=== PATIENT | female | born 1995 | race Caucasian/White ===

== ENCOUNTER 2017-12-04 08:22 | Observation (INO) | payer BC, OTHER ==
--- NOTE | 2017-12-01 12:46 | PDGENHP ---
History and Physical History and Physical: Assessment and Plan: 1. Pelvic pain in magdiel Lindquist has a complicated history and complicated treatment options given the side effects of migraine headaches and severe depression with certain hormones. We reviewed all conservative and surgical options. She has given this a great deal consideration. She has no plans for children in the future. At the end of our discussion she is interested in surgical exploration again which will involve excision of any endometriosis found. Additionally because she has central pelvic cramping pain which appears to be arising from her uterus, she is requesting hysterectomy. This also would allow her to control her symptoms without needing hormones which causes systemic side effects. If she decides not to undergo a hysterectomy I would recommend replacing her Mirena IUD while under anesthesia. 2. Endometriosis of pelvic peritoneum 3. Dysmenorrhea Subjective: Patient ID: Ameena Serrano is a 22 y.o. female who presents to [facility] for pelvic pain. LESLIE Lindquist is a 22-year-old 0 woman with a history of endometriosis. I performed robotic excision of endometriosis in 2012. Afterwards she was on Depo -Provera and later switched to a Mirena IUD. The Mirena could not seem to control her symptoms well for about 2 years. She then developed some monthly cyclic pain lasting about 1 week. She saw her regular technical project manager in [place] who then tried various control pills. One caused severe depression almost immediately. She is currently on a 20 mcg pill with drospirenone. This has controlled her cyclic symptoms fairly well but she continues to have bilateral pelvic cramping pain. She also was noticed to have an ovarian cyst in 2015 as well as May 2017. The pain radiates around to her low back. She does not have it daily but has most days. It typically will last 30-60 minutes at a time but sometimes longer. Her current control pill does cause migraine headaches. No current dyspareunia or dyschezia. Still has her Mirena IUD in place but has no bleeding. She is extremely tired of this pain as it greatly interferes with the quality of her life. PastMedicalHistory Past Medical History: Diagnosis Date Anemia Endometriosis Mental disorder Generalized Anxiety Disorder PastSurgicalHistory Past Surgical History: Procedure Laterality Date ear pressure equalization tube insertion Bilateral PELVIC LAPAROSCOPY 2012 UPPER GASTROINTESTINAL ENDOSCOPY WISDOM TOOTH EXTRACTION 2015 CURRENT MEDICATIONS: Current Outpatient Prescriptions Medication Sig drospirenone-eth estradiol (MAIKOL, 28,) 3-0.02 mg per tablet Take 1 tablet by mouth daily. gabapentin (NEURONTIN) 100 mg capsule Take 100 mg by mouth 2 times daily. levonorgestrel (MIRENA) 20 mcg/24 hr (5 years) IUD 52 mg by Intrauterine route continuous device. No current facility-administered medications for this visit. ALLERGIES: Vicodin [hydrocodone-acetaminophen] I have reviewed, verified and agree with the past medical, surgical, , family, social and ROS history as documented by the RN today. Objective: Vital Signs: Visit Vitals BP 112/68 Pulse 86 Temp 37.2 C (99 F) (Temporal Artery) Resp 16 Ht 1.88 m (6' 2") Wt 75.2 kg (165 lb 12.8 oz) SpO2 99% BMI 21.29 kg/m Physical Exam Gen: This is an alert, well developed woman in no distress. Neuro: She moves all extremities. Psych: She is appropriate, oriented, with normal affect. Neck: No thyroid enlargement, adenopathy, or tenderness. Lungs: Clear to ascultation, no wheezes or rales. Heart: Regular rate and rhythm without obvious murmurs. Abdomen: Soft, non-tender, without guarding, rebound, or masses. Extremities: No edema or cyanosis. Pelvic: Normal external genitalia. Non-gaping introitus, vagina without discharge, adequately estrogenized, no significant prolapse. Cervix without lesions or discharge. Uterus normal sized, mobile, non-tender. Adnexa non- tender without enlargement. The uterus is tender. Compressing the uterus re- creates her cramping type pain which radiates to her low back. Additionally she has discomfort along the uterosacral ligaments and posterior cul-de-sac. DATA: I have reviewed the pertinent medical records. TIME/COMMUNICATION: I personally spent a total of 60 minutes. Of that 50 minutes was counseling/ coordination of patient's care. See my note above for details. Jordan Sneed MD Board Certified Female Pelvic Medicine and Reconstructive Surgery Director of Minimally Invasive Gynecologic Surgery, [facility] Surgeon in Minimally Invasive Gynecologic Surgery [facility] Surgeon in Robotic Surgery
[2017-12-04] MEDS ORDERED: ceFAZolin 2 GM/SWFI 2 GM/20 ML SYR IVP ONE (08:31)
[2017-12-04] MEDS ORDERED: GABAPENTIN 300 MG CAP PO ONE (08:31)
[2017-12-04] MEDS ORDERED: ACETAMINOPHEN 500 MG TAB PO ONE (08:31)
[2017-12-04] MEDS ORDERED: PHENAZOPYRIDINE HCL 200 MG TAB PO ONE (08:31)
[2017-12-04] MEDS ORDERED: LR 1,000 ML IV ONE (08:32)
[2017-12-04] MEDS ORDERED: LIDOCAINE 1% 2 ML INJ ID PRN (08:32)
--- NOTE | 2017-12-04 09:14 | PDHPUP ---
History & Physical Update H&P update statement: This history and physical update is based on an assessment of the patient which was completed after admission or registration (within 24 hours), but prior to the surgery/procedure. H&P update: H&P reviewed & patient examined, no change in patient's condition since H&P completed
--- NOTE | 2017-12-04 09:36 | PDANEPAE ---
ANE Past Medical History - Cardiovascular History Hx Hypertension: No Hx Arrhythmias: No Hx Chest Pain: No Hx Coronary Artery / Peripheral Vascular Disease: No Hx CHF / Valvular Disease: No Hx Palpitations: No - Pulmonary History Hx COPD: No Hx Asthma/Reactive Airway Disease: No Hx Recent Upper Respiratory Infection: No Hx Oxygen in Use at Home: No Hx Sleep Apnea: No Sleep Apnea Screening Result - Last Documented: Negative - Neurologic History Hx Cerebrovascular Accident: No Hx Seizures: No Hx Dementia: No - Endocrine History Hx Diabetes: No Hypothyroid: No Hyperthyroid: No Obesity: no - Renal History Hx Renal Disorders: No - Liver History Hx Hepatic Disorders: No - Neurological & Psychiatric Hx Hx Neurological and Psychiatric Disorders: No - Cancer History Hx Cancer: No - Congenital Disorder History Hx Congenital Disorders: No - GI History Hx Gastrointestinal Disorders: Yes Gastrointestinal History Comment: SENSITIVE STOMACH - Other Health History Other Health History: NEG - Chronic Pain History Chronic Pain: Yes (ABD PAIN ENDOMETRIOSIS) - Surgical History Prior Surgeries: WISDOM TEETH 2016. LAPAROSCOPY 2012. EGD 2010 ANE Review of Systems Review of Systems: - Exercise capacity METS (RN): 5 METS ANE Patient History - Allergies Allergies/Adverse Reactions: No Known Allergies Allergy (Unverified 10/24/17 11:44) - Home Medications Home Medications: Ethinyl Estradiol/Drospirenone [Harika 3 mg-0.02 mg Tablet] 1 each PO DAILY 10/24 [Last Taken Unknown] Gabapentin [Neurontin 100 MG (*)] 100 mg PO BID 10/24/17 [Last Taken Unknown] Herbals/Supplements -Info Only 1 ea PO DAILY 10/24/17 [Last Taken Unknown] Ibuprofen [Motrin (*)] 200 mg PO DAILY PRN 10/24/17 [Last Taken Unknown] Levonorgestrel [Mirena] 1 each [id number] 10/24/17 [Last Taken Unknown] Multivitamins [Multivitamin (*)] 1 each PO DAILY 10/24/17 [Last Taken Unknown] - NPO status NPO Since - Liquids (Date): 12/04/17 NPO Since - Liquids (Time): 06:00 NPO Since - Solids (Date): 12/03/17 NPO Since - Solids (Time): 20:45 - Smoking Hx Smoking Status: Never smoked - Family Anes Hx Family Hx Anesthesia Complications: NEG ANE Labs/Vital Signs - Vital Signs Blood Pressure: 132/83 Heart Rate: 73 Respiratory Rate: 16 O2 Sat (%): 99 Height: 187.96 cm Weight: 77.111 kg ANE Physical Exam - Airway Neck exam: FROM Mallampati Score: Class 1 Mouth exam: normal dental/mouth exam - Pulmonary Pulmonary: no respiratory distress - Cardiovascular Cardiovascular: regular rate and rhythym - ASA Status ASA Status: I ANE Anesthesia Plan Anesthesia Plan: general endotracheal anesthesia
[2017-12-04] MEDS ORDERED: BUPIVACAINE 0.5% 30 ML SDV ONE (09:37)
[2017-12-04] MEDS ORDERED: SCOPOLAMINE HYDROBROMIDE 1 MG/3 DAYS PATCH TD SCH (09:45)
[2017-12-04] MEDS ORDERED: fentaNYL 250 MCG/5 ML INJ ONE (09:47)
[2017-12-04] MEDS ORDERED: ROCURONIUM 100 MG/10 ML VIAL ONE (09:47)
[2017-12-04] MEDS ORDERED: LIDOCAINE 2% 5 ML SDV ONE (09:47)
[2017-12-04] MEDS ORDERED: PROPOFOL/EMULSION 500 MG/50 ML BOTTLE IV ONE ×2 (09:47→10:50)
[2017-12-04] MEDS ORDERED: GLYCOPYRROLATE 0.2 MG/1 ML VIAL ONE (10:22)
[2017-12-04] MEDS ORDERED: ONDANSETRON 4 MG/2 ML VIAL ONE (10:23)
[2017-12-04] MEDS ORDERED: DEXAMETHASONE 4 MG/ML VIAL ONE (10:23)
[2017-12-04] MEDS ORDERED: KETOROLAC 30 MG/1 ML SDV ONE (11:17)
[2017-12-04] MEDS ORDERED: HYDROCODONE/APAP 5/325 TAB PO PRN ×2 (11:40→11:58)
[2017-12-04] MEDS ORDERED: LR 500 ML IV PRN (11:40)
[2017-12-04] MEDS ORDERED: MEPERIDINE 25 MG/0.5 ML AMP IVP PRN (11:40)
[2017-12-04] MEDS ORDERED: PROMETHAZINE HCL 25 MG/ML INJ IVP PRN ×2 (11:40→11:58)
[2017-12-04] MEDS ORDERED: NALOXONE HCL 0.4 MG/ML INJ IVP PRN ×2 (11:40→12:08)
--- NOTE | 2017-12-04 11:41 | POSTANESTH ---
Post Anesthetic Evaluation Cardiovascular Status: Normal, Stable Respiratory Status: Normal, Stable Level of Consciousness/Mental Status: Mildly Sleepy, Arousable Pain Control: Inadeq, Add Tx Required Nausea/Vomiting Control: Adequate, Prn Tx Ordered Complications Possibly Related to Anesthesia: None Noted
[2017-12-04] MEDS ORDERED: fentaNYL 100 MCG/2 ML INJ ONE (11:43)
[2017-12-04] MEDS: fentaNYL 100 MCG/2 ML INJ IVP PRN ×2 (11:44→11:52)
[2017-12-04] MEDS ORDERED: ONDANSETRON DISINTEGRATING 4 MG TAB PO PRN (11:58)
[2017-12-04] MEDS ORDERED: ONDANSETRON 4 MG/2 ML VIAL IVP PRN (11:58)
[2017-12-04] MEDS ORDERED: NON-FORMULARY NEW DRUG (Levonorgestrel [Mirena] 1 EACH) IY SCH (12:00)
[2017-12-04] MEDS ORDERED: LR 1,000 ML IV SCH (12:00)
[2017-12-04] MEDS ORDERED: HYDROmorphONE/DILAUDID 1 MG/ML INJ IVP PRN (12:08)
[2017-12-04] MEDS ORDERED: DIAZEPAM 5 MG/ML 1 ML SYR IVP PRN (12:08)
[2017-12-04] MEDS ORDERED: HYDROmorphONE/DILAUDID 2 MG/ML INJ ONE (12:10)
[2017-12-04] MEDS ORDERED: DIAZEPAM 5 MG/ML 1 ML SYR ONE (12:10)
[2017-12-04] MEDS: HYDROmorphONE/DILAUDID 1 MG/ML INJ IVP PRN ×2 (12:15→13:40)
--- NOTE | 2017-12-04 12:40 | GOP ---
[f rep st] OPERATIVE REPORT DATE OF OPERATION: 12/04/2017 SURGEON: Jordan Sneed MD PLANER SETTER: Madhavi Ambriz CFA. ANESTHESIA: General. PREOPERATIVE DIAGNOSIS: 1. Endometriosis. 2. Dysmenorrhea. 3. Cyclic pelvic pain. 4. Uterine prolapse. POSTOPERATIVE DIAGNOSIS: 1. Endometriosis. 2. Dysmenorrhea. 3. Cyclic pelvic pain. 4. Uterine prolapse. PROCEDURE PERFORMED: 1. Robotic-assisted total laparoscopic hysterectomy, bilateral salpingectomy. 2. Bilateral ureterolysis. 3. Excision of endometriosis in the posterior cul-de-sac, bilateral ovarian fossa, and anterior cul- de-sac. 4. Bilateral ovariopexy. 5. Uterosacral ligament colpopexy. 6. Cystoscopy. FINDINGS: SPECIMENS: Uterus, bilateral tubes, and peritoneum with endometriosis. ESTIMATED BLOOD LOSS: Scant. DESCRIPTION OF PROCEDURE: The patient was taken to the operating room where she was identified. Gen eral anesthesia was administered and found to be adequate. She was placed in the lithotomy position and prepared and draped in normal sterile fashion. A [employer] uterine manipulator was placed into the e ndometrial cavity and sutured to the cervix. A Kasper catheter was then placed. A 1 cm infraumbilical incision was made with a scalpel. The Veress needle with CO2 gas flowing was a dvanced into the peritoneal cavity. The abdomen was then insufflated with carbon dioxide gas. The 1 2 mm trocar followed by the laparoscope were then inserted. The upper abdomen was unremarkable. The re was no evidence of endometriosis on either diaphragm, liver, stomach gallbladder or upper abdomina l bowel. Two lateral ports placed in the right and one on the left under direct visualization. She then was placed in Trendelenburg position and the da Bhavik robot docked on the left side. The instru ments were then brought into the abdominal cavity under direct visualization. The patient was found to have endometriosis in the posterior cul-de-sac and bilateral ovarian fossae. The most significant area was along the left uterosacral ligament. There were several smaller lesi ons in the right anterior cul-de-sac. The anterior cul-de-sac peritoneum was then excised. The left fallopian tube was along the mesosalpinx. The utero-ovarian ligament, followed by the rou nd ligament were then cauterized and transected. The anterior leaf of the broad ligament was then in cised over the left uterine vessels and across the cervix. The bladder was gently dissected off the cervix and upper vagina. The left uterine vasculature was then cauterized and transected. The exact same procedure was performed on the patient's right side. The posterior cul-de-sac peritoneum from the distal rectum up to the cervix and laterally to the uterosacral ligaments was then excised. A bi lateral ureterolysis was required given the endometriosis overlying both ureters. The peritoneum at the pelvic brims was incised. The ureters were gently dissected free from the pelvic brim all the wa y down to the bladder to lateralize them off the overlying peritoneum and endometriosis. Once this w as accomplished, the overlying peritoneum and endometriosis was completely excised. A circumferentia l colpotomy incision was then made with the hot scotty. All specimens were removed through the vagin a. The vaginal cuff was closed with a running suture of 0 V-Loc 180. A bilateral uterosacral ligame nt colpopexy was performed by attaching the lateral aspects of the vaginal cuff to the ipsilateral ut erosacral ligaments near the coccygeal-sacrospinous ligament complexes. The pelvis was then irrigate d with sterile saline and hemostasis was present. Given cyclic pelvic pain a bilateral ovariopexy wa s performed. Each ovary was attached to the ipsilateral round ligaments with 3-0 Vicryl Rapide sutur e. The robot was then undocked. The fascia was closed with 0 Vicryl. The skin with 4-0 Monocryl an d surgical adhesive. Cystoscopy was then performed. Both ureters had vigorous jets of urine. There was no evidence of bladder nor urethral injury seen. No sutures were seen within the bladder. No o bvious pathology was seen. Anesthesia was reversed. The patient taken to PACU awake, in stable cond ition. COMPLICATIONS: None. DISPOSITION: Patient stable to PACU. /[id number]/MODL
[2017-12-04] MEDS: OXYCODONE/APAP 5/325 TAB PO PRN ×4 (14:47→20:17)
[2017-12-04] MEDS: SIMETHICONE 80 MG TAB CHEW PO SCH ×2 (14:55→20:02)
[2017-12-04] MEDS: KETOROLAC 30 MG/1 ML SDV IVP SCH ×2 (18:06→19:38)
[2017-12-04] MEDS: DOCUSATE SODIUM 100 MG CAP PO SCH (20:03)
[2017-12-04] MEDS: GABAPENTIN 100 MG CAP PO SCH (21:22)
[2017-12-05] MEDS: SIMETHICONE 80 MG TAB CHEW PO SCH ×2 (00:01→09:09)
[2017-12-05] MEDS: KETOROLAC 30 MG/1 ML SDV IVP SCH ×2 (00:19→06:38)
[2017-12-05] MEDS: OXYCODONE/APAP 5/325 TAB PO PRN ×3 (00:19→09:08)
[2017-12-05] MEDS ORDERED: DROSPIRENONE PO SCH (09:00)
[2017-12-05] MEDS ORDERED: ETHINYL ESTRADIOL PO SCH (09:00)
[2017-12-05 09:08] VITALS: BP 108/66
[2017-12-05] MEDS: GABAPENTIN 100 MG CAP PO SCH (09:08)
[2017-12-05] MEDS: DOCUSATE SODIUM 100 MG CAP PO SCH (09:08)
--- NOTE | 2017-12-06 06:15 | GDS ---
[f rep st] DISCHARGE SUMMARY DISCHARGE DIAGNOSES: 1. Endometriosis. 2. Dysmenorrhea. 3. Cyclic pelvic pain. POSTOPERATIVE DIAGNOSES: 1. Endometriosis. 2. Dysmenorrhea. 3. Cyclic pelvic pain. PROCEDURES: 1. Robotic-assisted laparoscopic hysterectomy, bilateral salpingectomy. 2. Bilateral ureterolysis. 3. Excision of endometriosis. 4. Ovariopexy. 5. Uterosacral ligament colpopexy. 6. Cystoscopy. HISTORY: The patient is a 22-year-old female with a long history of pelvic pain secondary to endomet riosis. She was taken to the operating room on 12/04/2017, where she underwent the above-mentioned p rocedures without complications. Her postoperative course was uneventful. The morning after surgery, she was ambulating, voiding, and tolerating a general diet. She was discharged home on postoperative day #1 in good condition. Medi cations included Percocet and ibuprofen for pain. She is to follow up in the office 2 weeks after yohan pang. /[id number]/MODL
== END 2017-12-05 13:30 | disposition home or self-care (01) ==
LOC: F3N 08:22 → F3E 10:25 → FOB 13:20
PROVIDERS: ADMIT Obstetrics & Gynecology; ATTEND Obstetrics & Gynecology
DX: N80.3 Endometriosis of pelvic peritoneum (principal); N80.1 Endometriosis of ovary; N94.5 Secondary dysmenorrhea; N81.4 Uterovaginal prolapse, unspecified; R10.2 Pelvic and perineal pain
CPT/HCPCS: 57425; 58571; G0378; J0690; J1100; J1170; J1885; J2270; J2405; J2704; J3010; J3360